=== PATIENT | male | born 1985 | race Two or more races ===

== ENCOUNTER 2016-12-26 20:28 | Emergency (ER) | payer MEDICAID ==
[~2016-12-26] VITALS: Ht 167.6 cm; Wt 59.0 kg
[2016-12-26 21:00] LABS: Urine Bilirubin Negative (Negative); Urine Blood Negative /uL (Negative); Urine Color Yellow (Yellow); Urine Glucose Normal (Normal); Urine Ketone Negative (Negative); Urine Nitrite Negative (Negative); Urine RBC 3 /hpf (0 - 3); Urine Urobilinogen Normal (Negative); Urine pH 6.5 (5.0-8.0)
[2016-12-26 21:47] VITALS: BP 122/96
[2016-12-26] MEDS ORDERED: AZITHROMYCIN 250 MG TAB PO ONE (22:30)
[2016-12-26] MEDS ORDERED: cefTRIAXone SODIUM 250 MG VL IM ONE (22:30)
== END 2016-12-26 22:52 | disposition home or self-care (01) ==
LOC: ER 20:35
DX: R30.0 Dysuria (principal); Z20.2 Contact with and (suspected) exposure to infections with a predominantly sexual mode of transmission; F17.210 Nicotine dependence, cigarettes, uncomplicated; F15.10 Other stimulant abuse, uncomplicated
CPT/HCPCS: 81001; 87491; 87591; 96372; 99284; J0696